=== PATIENT | female | born 1985 | race Caucasian/White ===

== ENCOUNTER → 2016-11-09 | Outpatient (CLI) | payer OTHER ==
--- NOTE | 2016-11-10 08:19 | MM ---
Reason for exam: screening (asymptomatic). Last mammogram was performed 5 months ago. History: Family history of breast cancer in aunt and breast cancer in grandmother. Physical Findings: A clinical breast exam by your physician is recommended on an annual basis and results should be correlated with mammographic findings. MG 3D Screening Mammo W/Cad Bilateral CC and MLO view(s) were taken. Prior study comparison: June 01, 2016, left breast MG diagnostic mammo LT w CAD. November 27, 2015, bilateral MG 3d diag mammo w/cad DARIA. The breast tissue is almost entirely fat. There is chronic nodularity in the left breast. No significant changes when compared with prior studies. ASSESSMENT: Benign, BI-RAD 2 RECOMMENDATION: Routine screening mammogram of both breasts at age 38.
== END | disposition home or self-care (01) ==
LOC: RADMAMWWP 12:55
PROVIDERS: ATTEND Obstetrics & Gynecology
DX: Z12.31 Encounter for screening mammogram for malignant neoplasm of breast (principal)
CPT/HCPCS: 77063; G0202

== ENCOUNTER → 2017-12-22 | Outpatient (CLI) | payer OTHER ==
--- NOTE | 2017-12-22 10:03 | CT ---
EXAMINATION TYPE: CT brain wo con DATE OF EXAM: 12/22/2017 COMPARISON: NONE INDICATION: BALLARD, vision changes, dizziness DLP: 1029.9 mGycm, Automated exposure control for dose reduction was used. CONTRAST: None CT of the brain is performed utilizing 3 mm thick sections through the posterior fossa and 3 mm thick sections through the remaining calvarium. Study is performed within 24 hours of arrival to the hosp [facility]. No abnormal hyperdensity is present to suggest an acute intracranial hemorrhage. No mass lesion is evident. No acute infarcts are evident. Ventricles and sulci are appropriate for the patient age. There is some mucosal thickening within the central frontal sinus and right ethmoid air cells. Remain ing paranasal sinuses and mastoid air cells are clear. IMPRESSIONS: 1. Normal intracranial CT brain. 2. Mild mucosal thickening frontal sinus and right anterior ethmoid air cells
== END | disposition home or self-care (01) ==
LOC: RADCTMAIN 09:29
PROVIDERS: ATTEND Pediatrics
DX: R51 Headache (principal); H53.9 Unspecified visual disturbance
CPT/HCPCS: 70450

== ENCOUNTER → 2023-08-31 | Outpatient (CLI) | payer BC ==
--- NOTE | 2023-08-31 09:24 | MM ---
Reason for Exam: Clinical finding. Last mammogram was performed 6 year(s) and 10 month(s) ago. Indicated Problems: Pain of the left side (Global) for 2 Month(s). Patient History: Menarche at age 10. First Full-Term at age 14. Patient has history of breast feeding. Maternal grandmother had breast cancer. Maternal aunt had breast cancer. Risk Values: Constance 5 year model risk: 0.4%. NCI Lifetime model risk: 7.3%. Prior Study Comparison: 02/20/2001 Bilateral Diagnostic Ultrasound, [facility]. 11/27/2015 Bilateral Diagnostic Mammogram, [facility] 11/27/2015 Left Diagnostic Ultrasound, [facility]. 06/01/2016 Left Diagnostic Mammogram, [facility]. 11/09/2016 Bilateral Screening Mammogram, [facility]. Tissue Density: There are scattered fibroglandular densities. Findings: Analyzed By CAD. Redemonstrated benign bilateral oil cyst calcifications. Some chronic elongated nodularity central 5-6 o'clock left breast remains unchanged 2016. No significant mass, suspicious microcalcification, or other discrete abnormality is seen. Overall Assessment: Incomplete: need additional imaging evaluation, BI-RAD 0 Management: Diagnostic Breast Ultrasound of the left breast. Lateral portion corresponding to the patient's breast pain. Electronically signed and approved by: Tanisha Barrientos M.D. Radiologist
--- NOTE | 2023-08-31 10:07 | USB ---
Reason for Exam: Clinical finding. Patient History: Menarche at age 10. First Full-Term at age 14. Patient has history of breast feeding. Maternal grandmother had breast cancer. Maternal aunt had breast cancer. Risk Values: Constance 5 year model risk: 0.4%. NCI Lifetime model risk: 7.3%. Technique: Method: Targeted. Prior Study Comparison: 11/27/2015 Bilateral Diagnostic Mammogram, [facility]. 06/01/2016 Left Diagnostic Mammogram, [facility]. 11/09/2016 Bilateral Screening Mammogram, [facility]. Findings: The upper outer quadrant of the left breast and the axilla of the left breast were scanned. Targeted ultrasound lateral aspect of the left breast from 12:00 to 3:00 including the axilla. No solid or cystic lesion or axillary lymphadenopathy is seen. Particular attention to the 1:00 site of patient's pain peripherally in the breast. Overall Assessment: Negative, BI-RAD 1 Management: Screening Mammogram of both breasts in 1 year. Further clinical management of patient's lateral left breast pain. A clinical breast exam by your physician is recommended on an annual basis and results should be correlated with mammographic findings. This exam should not preclude additional follow-up of suspicious palpable abnormalities. Results were given to the patient verbally at the time of exam. Electronically signed and approved by: Tanisha Barrientos M.D. Radiologist
== END | disposition home or self-care (01) ==
LOC: RADMAMWWP 08:49
PROVIDERS: ATTEND Pediatrics
DX: R92.323 Mammographic fibroglandular density, bilateral breasts (principal); N64.4 Mastodynia; Z80.3 Family history of malignant neoplasm of breast
CPT/HCPCS: 77062; 77066

== ENCOUNTER → 2024-06-29 | Outpatient (CLI) | payer BC ==
--- NOTE | 2024-06-29 15:46 | CT ---
EXAMINATION TYPE: CT soft tissue neck wo/w con DATE OF EXAM: 06/29/2024 COMPARISON: None HISTORY: 38-year-old female R5 9.1, swollen lymph nodes TECHNIQUE: Contiguous axial scanning of the soft tissues of the neck performed without and with IV Co ntrast, patient injected with 100 mL of Isovue 300. Coronal/sagittal reconstructions performed. CT DLP: 1375.9 mGycm Automated exposure control for dose reduction was used. FINDINGS: 8 mm hypodense nodule left lobe of the thyroid gland. Thyroid ultrasound can further evaluate. The bilateral submandibular glands are satisfactory. The bilateral parotid glands are mildly atrophic. There are bilateral parotid space lymph nodes which are borderline to mildly enlarged measuring up to 7 mm on the left and 9 mm on the right. Findings a re nonspecific. Visualized intracranial structures, paranasal sinuses, mastoid air cells, and orbits and globes appea r intact. The nasopharynx is clear. Mild hypertrophy of the bilateral palatine tonsils. Mild hypertrophy of the lingual tonsils. Epiglottis and prevertebral soft tissues are satisfactory. Glottic and subglottic structures as well as the tracheal column and visualized upper lungs appear cl ear. Scattered small lymph nodes are present along both sides of the neck, largest right station 2A lymph node measuring up to 9 mm. Parotid space lymph nodes mentioned above. Bones: No osseous destructive process. Scattered dental amalgam. IMPRESSION: 1. BORDERLINE AND MILDLY ENLARGED BILATERAL PAROTID SPACE LYMPH NODES MEASURING UP TO 9 MM ON THE RIG HT AND 7 MM ON THE LEFT ARE PROBABLY REACTIVE/POST INFLAMMATORY. NO OTHER SUSPICIOUS CERVICAL ADENOPA THY SEEN. RECOMMEND CLINICAL FOLLOW-UP. REPEAT CT VERSUS ULTRASOUND IF ANY PROGRESSIVE ENLARGEMENT IS NOTED OR IF SUSPICIOUS CLINICAL FEATURES DEVELOP. 2. SMALL 8 MM NODULE LEFT LOBE OF THE THYROID GLAND. THYROID ULTRASOUND COULD FURTHER EVALUATE IF CLI NICALLY INDICATED. [facility], , 06/29/2024 3:43 PM
== END | disposition home or self-care (01) ==
LOC: RADCTMAIN 15:04
PROVIDERS: ATTEND Pediatrics
DX: R59.1 Generalized enlarged lymph nodes (principal)
CPT/HCPCS: 70492

== ENCOUNTER → 2024-07-12 | Outpatient (CLI) | payer BC ==
--- NOTE | 2024-07-12 15:13 | US ---
EXAMINATION TYPE: US thyroid st tissue head/neck DATE OF EXAM: 07/12/2024 COMPARISON: CT: 06/29/24 CLINICAL INDICATION: Female, 38 years old with history of E04.1 NONTOXIC SINGLE THYROID NODULE; thyoi d nodule seen on CT TECHNIQUE: Grayscale and color Doppler imaging of the thyroid gland. FINDINGS: GLAND SIZE: Right Lobe: 4.7 x 1.5 x 1.3 cm Overall Parenchyma: homogeneous Left Lobe: 4.7 x 1.5 x 1.2 cm Overall Parenchyma: homogeneous Isthmus Thickness: 0.23 cm NODULES RIGHT: # of nodules measured on right: 0 Subcentimeter nodule seen LEFT: # of nodules measured on left: 1 1. 1.1 X 1.0 x 0.8 cm, mid mid, mixed cystic and solid, hypoechoic nodule, which is wider than tall , with lobulated or irregular margins, without echogenic foci. TR 3. ISTHMUS: # of nodules measured in the isthmus: 0 Bilateral neck scanned, no evidence of lymphadenopathy. IMPRESSION: 1.1 cm left thyroid nodule for which continued surveillance is recommended according to ACR guideline s. 2017 ACR TI-RADS LEVEL: TR-RADS 3 - Mildly Suspicious: Follow if > 1.5 cm, FNA if > 2.5 cm *Highest TI-RADS level nodule reported [email or web address] [facility], , 07/12/2024 3:10 PM
== END | disposition home or self-care (01) ==
LOC: RADUSWWP 13:39
PROVIDERS: ATTEND Pediatrics
DX: E04.1 Nontoxic single thyroid nodule (principal)
CPT/HCPCS: 76536

== ENCOUNTER → 2024-11-08 | Outpatient (CLI) | payer BC ==
--- NOTE | 2024-11-09 07:34 | MM ---
Reason for Exam: Screening (asymptomatic). Last mammogram was performed 1 year(s) and 2 month(s) ago. Patient History: Menarche at age 10. First Full-Term at age 14. Patient has history of breast feeding. Maternal grandmother had breast cancer. Paternal aunt had breast cancer. Risk Values: Constance 5 year model risk: 0.4%. NCI Lifetime model risk: 7.3%. Prior Study Comparison: 06/01/2016 Left Diagnostic Mammogram, [facility]. 11/09/2016 Bilateral Screening Mammogram, [facility]. 08/31/2023 Bilateral MG 3D diag mammo w/cad DARIA, [facility]. Tissue Density: The breasts are almost entirely fatty. Findings: Analyzed By CAD. Right breast: There is no suspicious group of microcalcifications or new suspicious mass. Benign-appearing calcifications right breast. Left breast: There is no suspicious group of microcalcifications or new suspicious mass. Benign-appearing calcifications left breast. Overall Assessment: Benign, BI-RAD 2 Management: Screening Mammogram of both breasts in [address] [facility] will attempt to contact patient to return for supplemental views and ultrasound if indicated. Patient should continue monthly self-breast exams. A clinical breast exam by your physician is recommended on an annual basis. This exam should not preclude additional follow-up of suspicious palpable abnormalities. Note on Constance scores and lifetime risk: 1. A Constance score greater than 3% is considered moderate risk. If this is the case, consider specialist referral to assess eligibility for a risk reducing agent. 2. If overall lifetime risk for the development of breast cancer is 20% or higher, the patient may qualify for future screening with alternating mammogram and breast MRI. [facility], , 11/09/2024 7:31 AM. Electronically signed and approved by: Lawrence Phipps DO
== END | disposition home or self-care (01) ==
LOC: RADMAMWWP 15:50
PROVIDERS: ATTEND Pediatrics
DX: Z12.31 Encounter for screening mammogram for malignant neoplasm of breast (principal); R92.313 Mammographic fatty tissue density, bilateral breasts; R92.1 Mammographic calcification found on diagnostic imaging of breast; Z80.3 Family history of malignant neoplasm of breast
CPT/HCPCS: 77063; 77067